=== PATIENT | male | born 2000 ===

== ENCOUNTER 2025-04-19 15:43 | Outpatient (AMB) | payer OTHER, SELFPAY ==
--- NOTE | 2025-04-19 15:46 | AM.OFFWIN_ITS ---
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 Intake Note: presents with red, sometimes itchy, bumpy rash on hands, arms, face, ears and genitals for 2 days Allergies No Known Allergies Allergy (Verified 04/19/25 15:49) Do you need a note to return to daycare/school/sports/work: Yes HPI HPI Comments History of Present Illness Details Patient is a 24yo M who presents with itchy rash Thursday afternoon onset of rash Over the weekend he was doing yard work Denies similar rash in past +itchy He said slight painful to rash Wears gloves on hands at work which makes worse Has been scratching which is causing it to spread Now located on arms, wrists and penile shaft No difficulty urinating or scrotal pain/edema He has tried anti-itch spay without relief He said + discharge to rash No fever or chills No tongue edema, ST, difficulty breathing Review of Systems Const Denies chills and Denies fever(s) Card Denies dyspnea Resp Denies dyspnea Denies difficulty urinating Skin/Breast Reports pruritus, Reports erythema and Reports rash Physical Exam Vital Signs: Last Vital Signs Temp 98.9 F 04/19/25 15:48 Pulse 95 04/19/25 15:48 BP 124/66 04/19/25 15:48 Pulse Ox 97 04/19/25 15:48 Oxygen Delivery Method Room Air 04/19/25 15:48 BMI result Body Mass Index 31.3 General: Non-toxic, NAD. Speaking full sentences. Skin: Warm dry throughout + vesicular scabbed linear lesions to bilateral forearms and wrists. Genital lesions not evaluated. No streaking of erythema. Eye: EOMI Respiratory: No tachypnea Cardiac: Radial pulse intact MSK: Full ROM extremities. Neurology: Alert. No aphasia or facial droop. Gait without abnormality Psych: Good mood and affect Assessment & Plan Assessment & Plan (1) Contact dermatitis: Code(s): L25.9 - Unspecified contact dermatitis, unspecified cause Qualifiers: Contact dermatitis type: irritant Contact dermatitis trigger: non-food plants Qualified Code(s): L24.7 - Irritant contact dermatitis due to plants, except food Plan: Patient seen and evaluated. Non-toxic appearing in NAD Prednisone (with food. avoid alcohol and nsaids) Avoid itching triamcinolone on arms, avoid genitals Call office with concerns Patient gave verbal understanding and had no additional questions or concerns at time of discharge All questions answered Medications: New prednisone see taper instructions; 60mg po qd x 2 days, 50mg po qd x 2 days, 40mg po qd x 2 days, 30mg po qd x 2 days, 20mg po qd x 2 days then 10mg po qd x 2 days 10 mg PO DIRECTED 42 tabs 0RF triamcinolone acetonide 0.5% 1 appl topical TID 15 grams 0RF 1 week Coding Level of Care Code New Pt Level 3 (70833) Diagnoses Irritant contact dermatitis due to plants, except food L24.7 Contact dermatitis type: irritant Contact dermatitis trigger: non-food plants
--- OUTSIDE RECORDS SUMMARY | 2025-04-19 15:46 | XMS_ITS | Clinical Summary ---
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 Name Role Phone Unavailable Primary Care Provider Unavailabl e Immunizations Immunization Administration Dates Next Due DTaP 5 07/02/2004, 2,2000, 000,2000 H1N1 09/14/2009 Hep B, ped/adol 02/15/2001,2000,2000 Hib (PRP-T) 09/14/2001, 1,2000, IPV 07/02/2004, 2,2000, Influenza, injectable, trivalent 09/14/2009 MMR 07/02/2004,06/11/2001 Meningococcal Conj (Menactra) MCV4P 06/03/2013 Pneumococcal Conjugate 09/14/2001,2000,2000, Tdap 06/03/2013 Varicella 12/31/2009,06/11/2001 Family History Relation Name Status Comments Father Father: Cancer -testicular Mother Alive Mother: Alive a nd well Nephew Nephew: Obesity Other Family history of CVA (Stroke), Family history of vascular disease, Family history of Heart disease Social History Tobacco Use Types Packs/Day Years Used Date Smoking Tobacco: Never Comments:Never smoker Sex and Gender Information Value Date Recorded Sex Assigned at Not on file Legal Sex Male 4:51 PM EDT Gender Identity Not on file Sexual Orientation Not on file Last Filed Vital Signs Vital Sign Reading Time Taken Comments Blood Pressure 128/69 01/09/2014 12:00 AM EDT Pulse 68 10/27/2013 12:00 AM EST Temperature 36.5 C (97.7 F) 01/09/2014 12:00 AM EDT Respiratory Rate - - Oxygen Saturation - - Inhaled Oxygen Concentration - - Weight 86.9 kg (191 lb 9.6 oz) 01/09/2014 12:00 AM EDT Height 176.5 cm (5' 9.5 ) 01/09/2014 12:00 AM ED T Body Mass Index 27.89 01/09/2014 12:00 AM EDT Plan of Treatment Health Maintenance Due Date Last Done Comments HPV Vaccines (1 - Male 3-dose series) 2015 DTaP,Tdap,and Td Vaccines (7 - Td or Tdap) 06/03/2023 06/03/2013, 07/02/2004, 11/26/2001, Additional history exists COVID-19 Vaccine ( season) 2024 Influenza Vaccines (#1) 2025 09/14/2009 Hepatitis B Vaccines Completed 02/15/2001, 2000, 2000 HIB Vaccines Completed 09/14/2001, 11/05, 2000, Additional history exists Pneumococcal Vaccine Completed 09/14/2001, 2000, 2000, Additional history exists IPV Vaccines Completed 07/02/2004, 11/06, 2000, Additional history exists MMR Vaccines Completed 07/02/2004, 06/11/2001 Varicella Vaccines Completed 12/31/2009, 06/11/2001 Meningococcal Vaccine Aged Out 06/03/2013 No veena angy eligible based on patient's age to complete this topic Hepatitis A Vaccines Aged Out No long er eligible based on patient's age to complete this topic Men B Vaccine Aged Out No longer elig ible based on patient's age to complete this topic
[2025-04-19 15:48] VITALS: BP 124/66; PULSE 95; TEMP 37.2; O2SAT 97; BMI 31.3
== END 2025-04-19 16:14 | disposition home or self-care (01) ==
PROVIDERS: Visit Provider Physician Assistant
DX: L24.7 Irritant contact dermatitis due to plants, except food (principal)